=== PATIENT | female | born 1980 | race African-American/Black ===

== ENCOUNTER 2017-08-28 00:17 | Emergency (ER) | payer SELFPAY, OTHER ==
[2017-08-28] MEDS: BENZONATATE 100 MG CAPSULE. PO (02:54)
== END 2017-08-28 02:55 | disposition home or self-care (01) ==
LOC: ER 00:17
DX: J40 Bronchitis, not specified as acute or chronic (principal); M54.89 Other dorsalgia; F31.9 Bipolar disorder, unspecified; F12.10 Cannabis abuse, uncomplicated; F17.200 Nicotine dependence, unspecified, uncomplicated; V43.52XA Car driver injured in collision with other type car in traffic accident, initial encounter; Y93.I9 Activity, other involving external motion; Y92.410 Unspecified street and highway as the place of occurrence of the external cause; Y99.8 Other external cause status
CPT/HCPCS: 71046; 99284-25